=== PATIENT | male | born 1975 ===

== ENCOUNTER 2024-03-04 05:40 | Observation (INO) | payer SELFPAY ==
[~2024-03-04 05:40] MED LIST: LOSARTAN 50 MG TAB ONE
[2024-03-04] MEDS ORDERED: NIFEdipine 10 MG CAP PO ONE (08:00)
[2024-03-04] MEDS ORDERED: MORPHINE SULFATE 4 MG/ML SYRINGE ONE (08:23)
[2024-03-04] MEDS ORDERED: hydrALAZINE HCL 25 MG TAB ONE (08:24)
[2024-03-04] MEDS ORDERED: carvediloL 3.125 MG TAB ONE ×2 (08:26→23:15)
[2024-03-04] MEDS ORDERED: LOSARTAN 50 MG TAB ONE (13:02)
[2024-03-04] MEDS ORDERED: ATORVASTATIN 40 MG TAB ONE (13:02)
[2024-03-04] MEDS ORDERED: ENOXAPARIN 40 MG/0.4 ML SYRINGE SQ ONE (13:02)
[2024-03-04] MEDS ORDERED: ASPIRIN 81 MG ONE (13:02)
[2024-03-04] MEDS ORDERED: SODIUM CHLORIDE 0.9% 1,000 ML BAG ONE (23:59)
[2024-03-05] MEDS ORDERED: SODIUM CHLORIDE 0.9% 1,000 ML BAG ONE (00:01)
[2024-03-05] MEDS ORDERED: VALSARTAN 160 MG TAB ONE (00:01)
[2024-03-05] MEDS ORDERED: hydroCHLOROthiazide 25 MG TAB ONE (00:01)
[2024-03-05] MEDS ORDERED: ASPIRIN 81 MG ONE (08:46)
[2024-03-05] MEDS ORDERED: ATORVASTATIN 40 MG TAB ONE (08:46)
[2024-03-05] MEDS ORDERED: ENOXAPARIN 40 MG/0.4 ML SYRINGE SQ ONE (08:48)
[2024-03-05] MEDS ORDERED: LOSARTAN 50 MG TAB ONE (08:48)
[2024-03-05] MEDS ORDERED: carvediloL 12.5 MG TAB ONE (22:55)
[2024-03-06] MEDS ORDERED: VALSARTAN 160 MG TAB ONE (00:01)
[2024-03-06] MEDS ORDERED: hydroCHLOROthiazide 25 MG TAB ONE (00:01)
[2024-03-06] MEDS ORDERED: carvediloL 12.5 MG TAB ONE (06:23)
[2024-03-06] MEDS ORDERED: ATORVASTATIN 40 MG TAB ONE (07:45)
[2024-03-06] MEDS ORDERED: ASPIRIN 81 MG ONE (07:45)
== END 2024-03-06 16:23 | disposition home or self-care (01) ==
LOC: 6NMEDSUR 05:40
PROVIDERS: ADMIT Internal Medicine; ATTEND Internal Medicine
DX: I16.0 Hypertensive urgency (principal); I10 Essential (primary) hypertension; Z87.891 Personal history of nicotine dependence; Z79.899 Other long term (current) drug therapy
CPT/HCPCS: 80048; 80061; 83735; 84484; 85025; 93005; 93306